=== PATIENT | male | born 1960 | race Caucasian/White ===

== ENCOUNTER 2017-11-22 09:40 | Inpatient (IN) | payer MEDICAID ==
[~2017-11-22] VITALS: Ht 188 cm; Wt 122.7 kg
[~2017-11-22 09:40] MED LIST: AMLO10TA13 PO; CITA20TA11 PO; FINA5TAB42 PO; HYDR-4070 PO; LISI40TA4 PO; TAMS0.4C32 PO
[2017-11-22 10:08] LABS: BASOPHILS % (AUTO) 0.7 % (0-1); EOSINOPHILS # (AUTO) 0.1 X10'3 (0-0.9); EOSINOPHILS % (AUTO) 1.6 % (0-6); HEMATOCRIT 35.7 % (42.0-52.0); HEMOGLOBIN 12.5 g/dl (14.0-17.9); LYMPHOCYTES # (AUTO) 0.5 X10'3 (1.1-4.8); MEAN CORPUSCULAR HEMOGLOBIN 29.8 PG (27.0-31.0); MEAN CORPUSCULAR VOLUME 85.2 FL (78-98); MEAN PLATELET VOLUME 7.9 FL (7.4-10.4); MONOCYTES # (AUTO) 0.4 X10'3 (0-0.9); MONOCYTES % (AUTO) 8.1 % (2-12); NEUTROPHILS # (AUTO) 3.5 X10'3 (1.8-7.7); NEUTROPHILS % (AUTO) 77.6 % (42-75); PLATELET COUNT 160 X10'3 (140-440); RED BLOOD COUNT 4.19 X10'6 (4.70-6.10); RED CELL DISTRIBUTION WIDTH 14.6 % (11.5-14.5); WHITE BLOOD COUNT 4.5 X10'3 (4.5-11.0)
[2017-11-22 10:19] LABS: PARTIAL THROMBOPLASTIN TIME 26 SECONDS (22-32); PROTHROMBIN TIME 10.5 SECONDS (9.0-12.0)
[2017-11-22 10:23] LABS: ALANINE AMINOTRANSFERASE 35 U/L (12-78); ALBUMIN 3.3 G/DL (3.4-5.0); ALBUMIN/GLOBULIN RATIO 0.9 (1.1-1.5); ALKALINE PHOSPHATASE 143 IU/L (46-116); ANION GAP 7 (8-16); ASPARTATE AMINO TRANSFERASE 22 U/L (10-37); BILIRUBIN,TOTAL 0.5 MG/DL (0.1-1.0); BLOOD UREA NITROGEN 21 MG/DL (7-18); BUN/CREATININE RATIO 14.2 (5.4-32.0); CALCIUM 8.7 MG/DL (8.5-10.1); CHLORIDE 108 MMOL/L (99-107); CREATININE 1.48 MG/DL (0.60-1.10); GLUCOSE 132 MG/DL (70-104); POTASSIUM 3.8 MMOL/L (3.5-5.1); SODIUM 142 MMOL/L (135-145); TOTAL PROTEIN 6.8 G/DL (6.4-8.2); eGFR 49 ML/MIN
[2017-11-22] MEDS ORDERED: normal saline 1000ML IV soln IVB ONE (10:25)
[2017-11-22] MEDS ORDERED: iohexol 350 MG/ML 50ML vial IV ONE (10:39)
[2017-11-22] MEDS ORDERED: METO-395 PO (13:40)
[2017-11-22] MEDS ORDERED: acetaminophen 325mg tablet PO PRN ×2 (19:10)
[2017-11-22] MEDS ORDERED: potassium Cl 20 mEq SR tablet PO PRN ×2 (19:10)
[2017-11-22] MEDS ORDERED: magnesium hydroxide 30ml (MOM) UD suspension PO PRN (19:10)
[2017-11-22] MEDS ORDERED: magnesium Cl slow-release 64mg tablet PO PRN (19:10)
[2017-11-22] MEDS ORDERED: magnesium 4gm in 100ml NS 100 ML IV PRN (19:10)
[2017-11-22] MEDS ORDERED: HYDROcodone/acetaminophen 5mg/325mg tablet PO PRN (19:10)
[2017-11-22] MEDS ORDERED: magnesium 2GM in 50ml NS 50 ML IV PRN (19:10)
[2017-11-22] MEDS ORDERED: ondansetron/PF 4mg/2ml inj IV PRN (19:10)
[2017-11-22] MEDS ORDERED: HYDROcodone/acetaminophen 10/325mg tab PO PRN (19:10)
[2017-11-22] MEDS ORDERED: potassium Cl 40MEQ/NS 500ml 500 ML IV PRN ×2 (19:10)
[2017-11-22] MEDS ORDERED: mag hydrox/Alum hydrox/simeth 30ml oral suspension PO PRN (19:10)
[2017-11-22] MEDS: metoprolol tartrate 12.5mg (1/2 tablet) PO SCH (20:40)
[2017-11-22] MEDS ORDERED: temazepam 15mg capsule PO PRN (21:00)
[2017-11-22 21:31] VITALS: BP 138/78
[2017-11-22 22:30] VITALS: BP 123/81
[2017-11-23 02:38] VITALS: BP 118/83
[2017-11-23 05:00] VITALS: BP_SYST 109; BP_SYST 129; BP_SYST 135; BP_DIAS 75; BP_DIAS 76; BP_DIAS 81
[2017-11-23 06:00] VITALS: BP 135/75
[2017-11-23 06:38] LABS: BASOPHILS % (AUTO) 0.3 % (0-1); EOSINOPHILS # (AUTO) 0.1 X10'3 (0-0.9); EOSINOPHILS % (AUTO) 1.9 % (0-6); HEMATOCRIT 35.4 % (42.0-52.0); HEMOGLOBIN 11.9 g/dl (14.0-17.9); LYMPHOCYTES # (AUTO) 0.5 X10'3 (1.1-4.8); LYMPHOCYTES % (AUTO) 9.9 % (21-51); MEAN CORPUSCULAR HEMOGLOBIN 28.4 PG (27.0-31.0); MEAN CORPUSCULAR HGB CONC 33.5 % (33.0-36.5); MEAN CORPUSCULAR VOLUME 84.6 FL (78-98); MEAN PLATELET VOLUME 8.4 FL (7.4-10.4); MONOCYTES # (AUTO) 0.4 X10'3 (0-0.9); NEUTROPHILS # (AUTO) 3.9 X10'3 (1.8-7.7); NEUTROPHILS % (AUTO) 79.9 % (42-75); PLATELET COUNT 161 X10'3 (140-440); RED BLOOD COUNT 4.19 X10'6 (4.70-6.10); RED CELL DISTRIBUTION WIDTH 15.5 % (11.5-14.5); WHITE BLOOD COUNT 4.9 X10'3 (4.5-11.0)
[2017-11-23 06:58] LABS: ALANINE AMINOTRANSFERASE 34 U/L (12-78); ALBUMIN 3.2 G/DL (3.4-5.0); ALBUMIN/GLOBULIN RATIO 0.9 (1.1-1.5); ALKALINE PHOSPHATASE 133 IU/L (46-116); ANION GAP 8 (8-16); ASPARTATE AMINO TRANSFERASE 26 U/L (10-37); BILIRUBIN,TOTAL 0.7 MG/DL (0.1-1.0); BLOOD UREA NITROGEN 16 MG/DL (7-18); BUN/CREATININE RATIO 13.1 (5.4-32.0); CALCIUM 8.6 MG/DL (8.5-10.1); CHLORIDE 107 MMOL/L (99-107); CHOL/HDL RATIO 4.8 (0.00-4.99); CHOLESTEROL 111 MG/DL (0-200); CREATININE 1.22 MG/DL (0.60-1.10); GLUCOSE 97 MG/DL (70-104); HDL CHOLESTEROL 23 MG/DL (35-60); LDL CHOLESTEROL 76 MG/DL (50-100); MAGNESIUM 1.8 MG/DL (1.5-2.4); POTASSIUM 3.8 MMOL/L (3.5-5.1); SODIUM 140 MMOL/L (135-145); TOTAL CARBON DIOXIDE 25.1 MMOL/L (24-32); TOTAL PROTEIN 6.6 G/DL (6.4-8.2); TRIGLYCERIDES 83 MG/DL (20-135); eGFR 61 ML/MIN
[2017-11-23] MEDS: K and/or MAG REPLACEMENT MC SCH (07:04)
[2017-11-23] MEDS: metoprolol tartrate 12.5mg (1/2 tablet) PO SCH ×3 (08:00→21:02)
[2017-11-23] MEDS ORDERED: aspirin 325mg tablet PO SCH (08:30)
[2017-11-23] MEDS: enoxaparin 40mg/0.4ml syringe SQ SCH (09:43)
[2017-11-23] MEDS: tamsulosin 0.4mg capsule PO SCH (09:43)
[2017-11-23] MEDS: citalopram 20mg tablet PO SCH (09:44)
[2017-11-23] MEDS: pantoprazole 40mg Tablet.DR PO SCH (09:44)
[2017-11-23 10:00] VITALS: BP_SYST 115; BP_SYST 120; BP_SYST 134; BP_DIAS 77; BP_DIAS 79; BP_DIAS 88
[2017-11-23 18:00] VITALS: BP 139/90
[2017-11-23] MEDS ORDERED: diphenhydrAMINE 25mg capsule PO PRN (21:35)
[2017-11-23 22:00] VITALS: BP 138/87
[2017-11-24 06:00] VITALS: BP 143/94
[2017-11-24 06:43] LABS: BASOPHILS % (AUTO) 0.4 % (0-1); EOSINOPHILS # (AUTO) 0.1 X10'3 (0-0.9); EOSINOPHILS % (AUTO) 2.6 % (0-6); HEMATOCRIT 36.9 % (42.0-52.0); HEMOGLOBIN 12.4 g/dl (14.0-17.9); LYMPHOCYTES # (AUTO) 0.5 X10'3 (1.1-4.8); LYMPHOCYTES % (AUTO) 11.7 % (21-51); MEAN CORPUSCULAR HEMOGLOBIN 28.8 PG (27.0-31.0); MEAN CORPUSCULAR HGB CONC 33.6 % (33.0-36.5); MEAN CORPUSCULAR VOLUME 85.7 FL (78-98); MEAN PLATELET VOLUME 8.3 FL (7.4-10.4); MONOCYTES # (AUTO) 0.4 X10'3 (0-0.9); MONOCYTES % (AUTO) 8.8 % (2-12); NEUTROPHILS # (AUTO) 3.3 X10'3 (1.8-7.7); NEUTROPHILS % (AUTO) 76.5 % (42-75); PLATELET COUNT 163 X10'3 (140-440); RED CELL DISTRIBUTION WIDTH 15.4 % (11.5-14.5); WHITE BLOOD COUNT 4.4 X10'3 (4.5-11.0)
[2017-11-24] MEDS: metoprolol tartrate 12.5mg (1/2 tablet) PO SCH ×2 (08:00→09:33)
[2017-11-24] MEDS: K and/or MAG REPLACEMENT MC SCH (08:00)
[2017-11-24 08:09] LABS: ALANINE AMINOTRANSFERASE 33 U/L (12-78); ALBUMIN 3.4 G/DL (3.4-5.0); ALKALINE PHOSPHATASE 139 IU/L (46-116); ANION GAP 11 (8-16); ASPARTATE AMINO TRANSFERASE 17 U/L (10-37); BILIRUBIN,TOTAL 0.7 MG/DL (0.1-1.0); BLOOD UREA NITROGEN 16 MG/DL (7-18); BUN/CREATININE RATIO 11.3 (5.4-32.0); CALCIUM 8.8 MG/DL (8.5-10.1); CHLORIDE 108 MMOL/L (99-107); CREATININE 1.41 MG/DL (0.60-1.10); GLUCOSE 97 MG/DL (70-104); MAGNESIUM 1.9 MG/DL (1.5-2.4); POTASSIUM 3.9 MMOL/L (3.5-5.1); SODIUM 144 MMOL/L (135-145); TOTAL CARBON DIOXIDE 25.2 MMOL/L (24-32); TOTAL PROTEIN 6.9 G/DL (6.4-8.2); eGFR 52 ML/MIN
[2017-11-24] MEDS ORDERED: aspirin 81mg tablet.DR PO SCH (08:30)
[2017-11-24] MEDS: citalopram 20mg tablet PO SCH (09:33)
[2017-11-24] MEDS: tamsulosin 0.4mg capsule PO SCH (09:33)
[2017-11-24] MEDS: pantoprazole 40mg Tablet.DR PO SCH (09:33)
[2017-11-24] MEDS: enoxaparin 40mg/0.4ml syringe SQ SCH (09:34)
[2017-11-24] MEDS ORDERED: ASPI-1071 PO (09:49)
[2017-11-24 10:00] VITALS: BP_SYST 119; BP_SYST 126; BP_SYST 130; BP_DIAS 79; BP_DIAS 84; BP_DIAS 87
== END 2017-11-24 12:30 | disposition home or self-care (01) | DRG 204 ==
LOC: ER 09:40 → ED HOLD 19:09 → ORTHO 4S 21:10
PROVIDERS: ADMIT Internal Medicine; ATTEND Internal Medicine
PROC: 0HQ1XZZ Repair Face Skin, External Approach (ICD-10-PCS; principal; 2017-11-22)
PROC: B3201ZZ Computerized Tomography (CT Scan) of Thoracic Aorta using Low Osmolar Contrast (ICD-10-PCS; 2017-11-22)
DX: R55 Syncope and collapse (principal); I71.2 Thoracic aortic aneurysm, without rupture; S01.81XA Laceration without foreign body of other part of head, initial encounter; I25.10 Atherosclerotic heart disease of native coronary artery without angina pectoris; I10 Essential (primary) hypertension; I65.23 Occlusion and stenosis of bilateral carotid arteries; N28.9 Disorder of kidney and ureter, unspecified; K80.20 Calculus of gallbladder without cholecystitis without obstruction; Z86.73 Personal history of transient ischemic attack (TIA), and cerebral infarction without residual deficits; Z95.1 Presence of aortocoronary bypass graft; Z87.891 Personal history of nicotine dependence; Z79.899 Other long term (current) drug therapy; W18.39XA Other fall on same level, initial encounter; Y93.89 Activity, other specified; Y92.89 Other specified places as the place of occurrence of the external cause; Y99.8 Other external cause status
CPT/HCPCS: 12011; 36415; 70450; 70544; 70551; 71045; 71275; 80053; 80061; 83735; 83880; 84484; 85025; 85610; 85730; 87070; 93005; 93306; 93880; 96361; 96374; 97116; 97161; 97530; 99285; A6449; J1650; J2270; J7030; Q0163; Q9967